=== PATIENT | male | born 1990 | race Caucasian/White ===

== ENCOUNTER 2019-09-21 09:20 | Emergency (ER) | payer OTHER ==
[~2019-09-21] VITALS: Ht 175.3 cm; Wt 89.0 kg
[~2019-09-21 09:20] MED LIST: AMPH25CA4 PO; FLUO20CA19 PO; OMEP-110 PO
[2019-09-21] MEDS ORDERED: KETOROLAC 60 MG/2 ML ONE (10:28)
[2019-09-21 10:30] VITALS: BP 126/85
--- NOTE | 2019-09-21 10:30 | NUR ---
pt presents to ED with c/o rt sided chest pain, on this RN's assessment pt denies radiating pain. pt denies sob, states he is unable to take a deep breath without exacerbating pain so breaths are shallow. pt is a&o, repss even and unlabored, able to speak in full sentences without taking a breath. all monitors in place, pt is nsr on copywriter with no ectopy noted. call light in reach. pt to have ddimer, tordadol and await dispo. pt updated with poc, agreeable.
[2019-09-21] MEDS ORDERED: KETOROLAC 60 MG/2 ML IM ONE (11:00)
--- NOTE | 2019-09-21 11:37 | NUR ---
PT UPDATED WITH RESULS AND POC BY . DC ORDERS RECEIVED. PT GIVEN DC INSTRUCTIONS AND SCRIPT, EDUCATED REGARDING DC RX FOR ROBAXAN. PT A&O, RESPS EVEN AND UNLABORED, AMBULATORY TO DC DESK WITH STEADY GAIT. ALL QUESTIONS ANSWERED.
== END 2019-09-21 11:37 | disposition home or self-care (01) ==
LOC: ED 11:25
DX: M94.0 Chondrocostal junction syndrome [Tietze] (principal); R06.02 Shortness of breath; R94.31 Abnormal electrocardiogram [ECG] [EKG]
CPT/HCPCS: 36415; 71045; 85379; 93005; 96372; 99285; J1885